=== PATIENT | male | born 1955 | race Caucasian/White ===

== ENCOUNTER 2019-11-08 16:10 | Emergency (ER) | payer OTHER ==
[~2019-11-08] VITALS: Ht 170.2 cm; Wt 71.7 kg
[2019-11-08 16:20] VITALS: BP 177/101
--- NOTE | 2019-11-08 16:20 | NUR ---
Pt taken to bed 3.
--- NOTE | 2019-11-08 16:41 | NUR ---
[employer] EM[employer] S/P FALL AT WORK AND HIT HEAD ON CONCRETE GROUND. PT REPORTS TO HAVE STEPPED INTO A HOLE AND FELL FORWARD, HITTING ANTERIOR HEAD ON GROUND. SCANT SWELLING AND ABRASIONS ABOVE RIGHT EYEBROW. NO LOSS OF CONSCIOUSNESS REPORTED, NO CHANGES IN VISION REPORTED. PT REPORTS 0/10 PAIN. AWAKE, ALERT, ORIENTED X3. NO PMH NKA
[2019-11-08 17:27] VITALS: BP 129/69
--- NOTE | 2019-11-08 17:28 | NUR ---
Patient discharged with v/s stable. Written and verbal after care instructions given and explained. Patient verbalized understanding. Ambulatory with steady gait. All questions addressed prior to discharge. Advised to follow up with PMD.
== END 2019-11-08 17:28 | disposition home or self-care (01) ==
LOC: MED 16:10
DX: S09.90XA Unspecified injury of head, initial encounter (principal); W18.09XA Striking against other object with subsequent fall, initial encounter; Y93.01 Activity, walking, marching and hiking; Y92.89 Other specified places as the place of occurrence of the external cause; Y99.8 Other external cause status
CPT/HCPCS: 99283